=== PATIENT | female | born 1995 | race Hispanic/Latino ===

== ENCOUNTER 2019-02-03 22:54 | Emergency (ER) | payer MEDICAID ==
[2019-02-03 23:14] VITALS: RESP 16
[2019-02-04 00:09] LABS: BASO % 0.6 % (0.0-2.0); EOS % 0.9 % (0.0-4.0); HEMOGLOBIN 11.1 g/dL (12.0-16.0); LYMPH # 2.1 K/uL (1.0-4.3); LYMPH % 41.1 % (20.0-40.0); MEAN CELL VOLUME 79.1 fl (81.0-99.0); MEAN CORPUSCULAR HEMOGLOBIN 25.1 pg (27.0-31.0); MEAN CORPUSCULAR HGB CONC 31.8 g/dL (33.0-37.0); MEAN PLATELET VOLUME 9.6 fl (7.2-11.7); MONO # 0.4 K/uL (0.0-0.8); MONO % 8.2 % (0.0-10.0); NEUT # 2.6 K/uL (1.8-7.0); NEUT % 49.2 % (50.0-75.0); RBC 4.41 Mil/uL (3.80-5.20); RED CELL DISTRIBUTION WIDTH 18.5 % (11.5-14.5); WHITE BLOOD COUNT 5.2 K/uL (4.8-10.8)
[2019-02-04 00:13] LABS: INR 1.2; PROTHROMBIN TIME 13.3 Seconds (9.8-13.1)
[2019-02-04 00:16] LABS: PARTIAL THROMBOPLASTIN TIME 35.1 Seconds (25.6-37.1)
[2019-02-04 00:17] LABS: ALB/GLOB RATIO 1.5 (1.0-2.1); ALBUMIN 4.7 g/dL (3.5-5.0); ALT/SGPT 25 U/L (9-52); AST/SGOT 24 U/L (14-36); BLOOD UREA NITROGEN 10 mg/dl (7-17); CALCIUM 9.7 mg/dL (8.4-10.2); GFR NON-AFRICAN AMERICAN > 60
--- NOTE | 2019-02-04 00:21 | ED PDOC ---
HPI: Chest Pain Time Seen by Provider: 02/03/19 23:36 Chief Complaint (Nursing): Chest Pain Chief Complaint (Provider): Chest Pain History Per: Patient History/Exam Limitations: no limitations Onset/Duration Of Symptoms: Days (x 3) Current Symptoms Are (Timing): Still Present Quality: "Pain" Associated Symptoms: Dyspnea. denies: Nausea, Diaphoresis, Syncope Additional Complaint(s): 23 year old female with a history of rafael black fan anemia presents to the ED with shortness of breath and chest pain for 3 days. Patient reports chest pain and a sense of numbness to extremities. She states that she requires transf usions periodically. Her last one was December of last year. Patient's normal hemoglobin levels are between 9 and 10. Denies nausea, vomiting, diaphoresis, syncope and dizziness. PMD: Dr. Marisel Funez Past Medical History Reviewed: Historical Data, Nursing Documentation, Vital Signs Vital Signs: Last Vital Signs Temp 97.3 F L 02/03/19 23:12 Pulse 83 02/03/19 23:12 Resp 16 02/03/19 23:12 BP 120/82 02/03/19 23:12 Pulse Ox 98 02/03/19 23:12 - Medical History PMH: Anemia (rafael blackfan) - Surgical History Surgical History: No Surg Hx - Family History Family History: States: Unknown Family Hx - Allergies Allergies/Adverse Reactions: Allergies Allergy/AdvReac Type Severity Reaction Status Date / Time No Known Allergies Allergy Verified 02/03/19 23:09 Review of Systems ROS Statement: Except As Marked, All Systems Reviewed And Found Negative Constitutional: Negative for: Sweats, Other (syncope) Cardiovascular: Positive for: Chest Pain Respiratory: Positive for: Shortness of Breath Gastrointestinal: Negative for: Nausea, Vomiting Neurological: Negative for: Dizziness Physical Exam - Reviewed Nursing Documentation Reviewed: Yes Vital Signs Reviewed: Yes - Physical Exam Appears: Positive for: Non-toxic, No Acute Distress Head Exam: Positive for: ATRAUMATIC, NORMAL INSPECTION, NORMOCEPHALIC Skin: Positive for: Normal Color, Warm, Dry Eye Exam: Positive for: EOMI, Normal appearance, PERRL Neck: Positive for: Normal, Painless ROM, Supple Cardiovascular/Chest: Positive for: Regular Rate, Rhythm. Negative for: Murmur Respiratory: Positive for: Normal Breath Sounds. Negative for: Respiratory Distress Gastrointestinal/Abdominal: Positive for: Normal Exam, Soft. Negative for: Tenderness Back: Positive for: Normal Inspection. Negative for: L CVA Tenderness, R CVA Tenderness Extremity: Positive for: Normal ROM (x 4). Negative for: Deformity Neurological/Psych: Positive for: Awake, Alert, Normal Tone, Oriented. Negative for: Motor/Sensory Deficits - Laboratory Results Result Diagrams: 02/04/19 00:05 02/04/19 00:05 Lab Results: PT 13.3 Seconds (9.8-13.1) H 02/04/19 00:05 INR 1.2 02/04/19 00:05 APTT 35.1 Seconds (25.6-37.1) 02/04/19 00:05 - ECG O2 Sat by Pulse Oximetry: 98 (RA) Pulse Ox Interpretation: Normal Medical Decision Making Medical Decision Makin:45 Impression: 23 year old female with chest pain and shortness of breath in setting of chronic anemia Initial Plan: --Blood type --EKG --CMP --CBC --LDH --Troponin --Urine preg --Urine dip --PTT --PT --Reticulocyte 00:25 Hemoglobin is 11.1. 01:00 Labs reviewed and reveal no clinically significant abnormalities. Patient will follow up with PMD. Scribe Attestation: Documented by Layla Mitchell, acting as a scribe Sridhar Bowden MD Provider Scribe Attestation: All medical record entries made by the Scribe were at my direction and personally dictated by me. I have reviewed the chart and agree that the record accurately reflects my personal performance of the history, physical exam, medical decision making, and the department course for this patient. I have also personally directed, reviewed, and agree with the discharge instructions and disposition Disposition - Clinical Impression Clinical Impression: Atypical chest pain, Hypokalemia - Patient ED Disposition Is Patient to be Admitted: No - Disposition Disposition: Routine/Home Disposition Time: 01:00 Condition: STABLE Instructions: Hypokalemia, Chest Pain That Is Not Caused by the Heart (DC) Forms: [employer] ([place]), [facility] ED School/Work Excuse
[2019-02-04] MEDS ORDERED: Potassium Chloride 20 mEq ER Tab PO ONE ×2 (00:36→00:47)
[2019-02-04 01:13] VITALS: BP 122/84; PULSE 86; TEMP 98; O2SAT 99
--- NOTE | 2019-02-04 08:21 | CARD ---
APPROVED REPORT Date of service: 02/03/2019 EKG Measurement Heart [id number] CO [id number] <Conclusion> Normal sinus rhythm Normal ECG
== END 2019-02-04 01:08 | disposition home or self-care (01) ==
LOC: H.ER 22:54
DX: R07.89 Other chest pain (principal); E87.6 Hypokalemia; D64.9 Anemia, unspecified